=== PATIENT | female | born 1955 | race African-American/Black ===

== ENCOUNTER 2018-01-31 02:12 | Observation (INO) | payer MEDICARE ==
[2018-01-31 04:28] LABS: Troponin I 0.072 ng/mL (< 0.028)
[2018-01-31 04:31] VITALS: BMI 26.4
[2018-01-31 07:21] LABS: Troponin I 0.083 ng/mL (< 0.028)
[2018-01-31] MEDS ORDERED: Ondansetron PF 4 MG/2 ML Vial IVP PRN (07:40)
[2018-01-31] MEDS ORDERED: Acetaminophen 325 MG TAB PO PRN (07:41)
[2018-01-31] MEDS ORDERED: Ondansetron ODT 4 MG TAB PO PRN (07:41)
[2018-01-31 11:14] LABS: Troponin I 0.071 ng/mL (< 0.028)
[2018-01-31] MEDS ORDERED: busPIRone HCl 10 MG TAB PO PRN (11:28)
--- NOTE | 2018-01-31 16:04 | CON ---
DATE OF CONSULTATION: 01/31/2018 REASON FOR CONSULTATION: Chest pain. HISTORY OF PRESENT ILLNESS: Mrs. Mathis is a pleasant 60-year-old -Romanian female who comes to the hospital for chest pain. She sees Dr. Chin Bautista at [facility] and has seen Dr. Alexandre her e in past and did a heart catheterization in 2016. It was found that she had 20%-30% left main steno sis. No flow limiting disease in the LAD or the left circumflex. Right coronary had posterolateral branch about 50-75, but not flow limiting. Previously placed in the right coronary artery was widely patent with just mild plaque formation. She had a readmission in September of last year for similar comp laints of chest pain. She was ruled out with negative enzymes and discharged home. She comes in as she was at home trying to take her medications. She served herself a glass of water. She swallowed some saliva right before she would take a drink and she felt like she had a hard time swallowing and pressure started to develop on her chest. She took a sublingual nitro, which made the tightness in h er chest go away and took all her medicines, decided to come in for evaluation. She has not had this for at least the last year. PAST MEDICAL HISTORY: 1. Hypertrophic cardiomyopathy, status post myomectomy 2003. 2. Several atrial flutter ablations and atrial fibrillation ablations. 3. AICD placed in the past. 4. Coronary artery disease, status post stent to the right coronary artery as above. 5. Left heart catheterization back in 2016 as above. 6. Type 2 diabetes. 7. Hyperlipidemia. 8. . OUTPATIENT MEDICATIONS: Include: 1. Xarelto mg a day. 2. Ativan 0.5 mg p.o. b.i.d. p.r.n. 3. Amitriptyline. 4. Metoprolol succinate 25 mg daily. 5. BuSpar. 6. Imdur 60 mg p.o. b.i.d. 7. Gabapentin 200 mg p.o. t.i.d. 8. Aspirin 81 daily. 9. Albuterol. 10. Aldactone 50 mg a day. 11. Potassium chloride 20 mEq b.i.d. 12. Lasix 120 mg p.o. b.i.d. 13. Metformin 500 mg p.o. b.i.d. 14. Rosuvastatin 20 mg at bedtime. 15. Sublingual nitro. 16. Lisinopril 2.5 mg a day. ALLERGIES: PENICILLIN and SULFA DRUGS. SOCIAL HISTORY: Smokes a pack a day. No alcohol or drug use. FAMILY HISTORY: Bypass at early age in father. Mother is healthy otherwise. REVIEW OF SYSTEMS: Twelve-point review of system was done and is all negative unless stated in histo ry of present illness. PHYSICAL EXAMINATION: VITAL SIGNS: Temperature 98.0, pulse 59, respiration rate 16, sat 98% on room air, blood pressure 11 1/58. GENERAL: Awake, alert, oriented x3, in no distress. HEENT: Normocephalic. NECK: Supple. LUNGS: Clear. CARDIOVASCULAR: S1, S2, no S3, S4, no murmur. ABDOMEN: Soft, positive bowel sounds. EXTREMITIES: No edema. SKIN: Warm and dry. LABORATORY WORK: Reviewed. Troponin is undetermined range x3. CBC with a white count of 13, hemogl obin of 13, hematocrit 40, platelet count 196. Chemistry: BNP was 424. CMP was unremarkable. Crea tinine 1.2, glucose of 155. UA was unremarkable. EKG was reviewed. ASSESSMENT AND PLAN: 1. Chest pain: Atypical. Her troponins are indeterminate, which is similar to what they were in th e past. We will plan on doing a nuclear stress test to evaluate for ischemia. 2. We will repeat an echocardiogram to evaluate LV function and valvular structures. 3. Currently chest pain free. No recurrence. 4. Further recommendations per results of stress and echo.
[2018-01-31] MEDS: Rivaroxaban 10 MG TAB PO SCH (16:47)
[2018-01-31] MEDS: metFORMIN 500 MG TAB PO SCH (16:47)
--- NOTE | 2018-01-31 17:08 | PDOC.PN ---
- Subjective Encounter Start Date: 01/31/18 Encounter Start Time: 09:00 Subjective: f/u on new admission for chest pain -: Significant cardiac hx, last Echo 3-4 months ago, -: Patient reports chest pain has resolved - Objective Resuscitation Status: FULL Vital Signs & Weight: Vital Signs (12 hours) Temp Pulse Resp BP BP Pulse Ox 01/31/18 15:00 98.2 F 60 16 130/68 99 01/31/18 11:36 98 F 59 L 16 111/58 L 98 01/31/18 08:00 98.2 F 60 18 108/56 L 97 01/31/18 07:36 98.2 F 60 16 108/56 L 97 Weight Weight 76.657 kg I&O: 01/30/18 01/31/18 02/01/18 06:59 06:59 06:59 Intake Total 10 10 Output Total 700 Balance -690 10 Additional Labs: Accuchecks 01/31/18 01/31/18 01/31/18 16:36 11:15 05:54 POC Glucose 88 85 106 Phys Exam - Physical Examination HEENT: PERRLA, moist MMs Neck: no nodes, no JVD Respiratory: no wheezing, no rales, no rhonchi Cardiovascular: RRR, no rub Murmur grade 4/6 Gastrointestinal: soft, non-tender Musculoskeletal: no edema, pulses present Neurological: non-focal, normal sensation Lymphatic: no nodes Psychiatric: normal affect, A&O x 3 Skin: no rash, normal turgor, cap refill <2 seconds Dx/Plan (1) Demand ischemia of myocardium Code(s): I24.8 - OTHER FORMS OF ACUTE ISCHEMIC HEART DISEASE Status: Acute (2) Obesity (BMI 30.0-34.9) Code(s): E66.9 - OBESITY, UNSPECIFIED Status: Acute (3) CAD (coronary artery disease) Code(s): I25.10 - ATHSCL HEART DISEASE OF [place] CORONARY ARTERY W/O ANG PCTRS Status: Chronic Qualifiers: Coronary Disease-Associated Artery/Lesion type: [place] artery [place] vs. transplanted heart: [place] heart Associated angina: without angina Qualified Code(s): I25.10 - Atherosclerotic heart disease of [place] coronary artery without angina pectoris Comment: nearly 4 stents per patient (4) Diabetes type 2, controlled Code(s): E11.9 - TYPE 2 DIABETES MELLITUS WITHOUT COMPLICATIONS Status: Chronic Qualifiers: Diabetes mellitus usp insulin use: with usp use Diabetes mellitus complication status: with unspecified complications Qualified Code(s) : E11.8 - Type 2 diabetes mellitus with unspecified complications; Z79.4 - terminal operator (current) use of insulin (5) H/O hypertrophic cardiomyopathy Code(s): Z86.79 - PERSONAL HISTORY OF OTHER DISEASES OF THE CIRCULATORY SYSTEM Status: Chronic (6) HTN (hypertension) Code(s): I10 - ESSENTIAL (PRIMARY) HYPERTENSION Status: Chronic Qualifiers: Hypertension type: essential hypertension Qualified Code(s): I10 - Essential (primary) hypertension (7) Tobacco abuse Code(s): Z72.0 - TOBACCO USE Status: Chronic - Plan -: Cardiology consult, Echo and Stress test in AM -: Continue Home meds -: Labs in am, NPO after midnight -: Will continue to monitor * .
[2018-01-31] MEDS ORDERED: Rosuvastatin 20 MG TAB PO SCH (21:00)
[2018-01-31] MEDS: Potassium Chloride 20 MEQ TAB PO SCH (21:53)
[2018-01-31 22:26] LABS: Hemoglobin 13.4 g/dL (12.0-16.0); Platelet Count 195 thou/uL (130-400)
[2018-01-31] MEDS ORDERED: Acetaminophen 325 MG TAB PO SCH (22:45)
--- NOTE | 2018-02-01 01:42 | HP ---
PRIMARY CARE PHYSICIAN: Rosa Owusu M.D. Patient sees a industrial court magistrate at [facility]. CHIEF COMPLAINT: Chest pain. HISTORY OF PRESENT ILLNESS: Ms. Mathis is a pleasant 60-year-old -Citizen Of [place] female who comes to the hospital for chest pain. She reports that she sees a Dr. Chin Bautista at the [facility] and has seen Dr. Alexandre here in the past, who did a heart catheterization in 2016. She reports garrett t she was in her normal state of health. When last night, she went into the kitchen to get a glass o f water to take her evening meds. She swallowed some saliva before she took a drink and felt like sh e had a hard time swallowing and she reported some chest pressure in her chest. She reports feeling ill, diaphoretic. Reports that she had to wake up her who went and got her some sublingual n itroglycerin and then aspirin. She took some of those, which made her chest pain get better. She wa s worried because of her significant cardiac history and she presented to the ER for chest pain evalu ation. PAST MEDICAL HISTORY: 1. Hypertrophic cardiomyopathy. 2. Several atrial flutter ablations and atrial fibrillation ablations. 3. AICD placed in the chest. 4. Coronary artery disease, status post stent in the right coronary artery. 5. Left heart catheterization in 2016. 6. Type 2 diabetes. 7. Hyperlipidemia. CURRENT MEDICATIONS: Patient takes albuterol inhaler 1 puff q.4 hours as needed, amitriptyline 10 mg p.o. at bedtime, aspirin 81 mg p.o. daily, BuSpar 10 mg p.o. b.i.d., Prozac 20 mg p.o. at bedtime, f urosemide 120 mg p.o. b.i.d., gabapentin she takes 300 mg twice a day, isosorbide 60 mg p.o. b.i.d., lisinopril 2.5 mg p.o. daily, metformin 500 mg p.o. b.i.d., metoprolol 25 mg p.o. b.i.d. She has nit roglycerin 0.4 mg tablets as needed for chest pain, potassium chloride 20 mEq p.o. b.i.d., Xarelto 20 mg p.o. daily, pravastatin 20 mg p.o. at bedtime, and spironolactone 50 mg p.o. daily. ALLERGIES: PENICILLIN and SULFA DRUGS. SOCIAL HISTORY: Patient lives at home with her . Smokes a pack of cigarettes a day. Denies any alcohol or drug use. FAMILY HISTORY: Father had a bypass at an early age. Mother is healthy. REVIEW OF SYSTEMS: Twelve-point review of systems was done and are negative other than what is state d in the HPI. PHYSICAL EXAMINATION: VITAL SIGNS: Temperature 98.2, pulse is 60, respirations are 16, pulse ox 97 on room air, blood pres sure 108/56. GENERAL: Patient is alert, awake, and oriented x3, is in no distress. HEENT: Head is normocephalic. Mucous membranes are moist. NECK: Supple, no JVD. LUNGS: Clear to auscultation. No rhonchi, no rales. CARDIOVASCULAR: S1, S2. No murmur, no gallops. ABDOMEN: Soft, nontender, positive bowel sounds. EXTREMITIES: Equal strength pulses bilaterally. No edema is noted to lower extremities. SKIN: Warm, dry, and intact. PERTINENT LABORATORY DATA: White blood cell count is 13, red blood cells 4.9, hemoglobin 13.2, hemat ocrit 40.5, platelet count 196, bands 1. Sodium is 140, potassium 4.1, chloride 105, carbon dioxide 24, anion gap is 15, BUN is 16, creatinine is 1.23, estimated GFR is 54. Glucose is 155, CK-MB is 3. 6. Troponin first one 0.072, second one 0.083, third one 0.071. BNP is 424, albumin is 41. Chest x -ray was done in the ER, which showed cardiomegaly without any definite acute findings. EKG was done with a paced rhythm beats per minute are 60, prolonged AV conduction, incomplete left bundle branch block. ST segments were normal. T waves were normal. ASSESSMENT AND PLAN: 1. Chest pain. Serial troponins were indeterminate, which is similar to the way they were in the ms st. Cardiology will be consulted. Stress test and a repeat echocardiogram if agreeable with Cardiol mariah. 2. Type 2 diabetes. We will continue patient's home medication, which includes metformin, hypertens ion. Home medications will be continued. 3. Tobacco abuse. Patient will be counseled on smoking cessation. LENGTH OF HOSPITAL STAY: Will be determined by hospital clinical course.
[2018-02-01 05:35] LABS: #Basophils 0.1 thou/uL (0.0-0.2); #Eosinphils 0.1 thou/uL (0.0-0.7); #Lymphocytes 3.5 thou/uL (1.20-3.40); #Monocytes 0.6 thou/uL (0.11-0.59); #Neutrophils 4.2 thou/uL (1.40-6.50); %Basophils 1.1 % (0.0-1.0); %Eosinophils 1.3 % (0.0-10.0); %Lymphocytes 41.6 % (21.0-51.0); %Monocytes 6.9 % (0.0-10.0); %Neutrophils 49.1 % (42.0-75.0); Mean Corpuscular HGB CONC 31.1 g/dL (32.0-36.0); Mean Corpuscular Hemoglobin 26.8 pg (27.0-31.0); Mean Corpuscular Volume 86.1 fL (78.0-98.0); Mean Platelet Volume 7.2 fL (7.4-10.4); Platelet Count 189 thou/uL (130-400); RBC Distribution Width 13.1 % (11.5-14.5); Red Blood Cell (RBC) Count 4.84 mill/uL (4.20-5.40); White Blood Cell (WBC) Count 8.5 thou/uL (4.8-10.8)
[2018-02-01 06:00] LABS: ALT (SGPT) 13 U/L (8-55); AST (SGOT) 19 U/L (5-34); Albumin 3.8 g/dL (3.5-5.0); Alkaline Phosphatase 68 U/L (40-150); Anion Gap 10 mmol/L (10-20); BUN (Urea Nitrogen) 22 mg/dL (9.8-20.1); Bilirubin, Total 0.3 mg/dL (0.2-1.2); Calc. Creatinine Clearance 70 mL/min (70-130); Carbon Dioxide 24 mmol/L (22-29); Chloride 107 mmol/L (98-107); Estimated GFR-MDRD 65; Globulin 2.9 g/dL (2.4-3.5); Glucose 105 mg/dL (70-105); Potassium 4.3 mmol/L (3.5-5.1); Protein, Total 6.7 g/dL (6.0-8.3); Sodium 137 mmol/L (136-145)
[2018-02-01] MEDS ORDERED: Aspirin 81 mg Enteric Coated Tablet PO SCH (09:00)
[2018-02-01] MEDS ORDERED: Lisinopril 2.5 MG TAB PO SCH ×2 (09:00→21:00)
[2018-02-01] MEDS: Potassium Chloride 20 MEQ TAB PO SCH (11:38)
--- NOTE | 2018-02-01 12:35 | PDOC.CTH ---
<Serena Guerra - Last Filed: 02/01/18 12:30> Cardiology Progress Note - Subjective The pt seen and examined. No overnight events. No cardiac complaints. - Objective Vital Signs Temp Pulse Resp BP BP Pulse Ox 02/01/18 11:35 98.1 F 69 18 121/66 98 02/01/18 07:50 98.1 F 65 18 118/58 L 98 02/01/18 07:35 98 F 65 18 118/58 L 98 02/01/18 04:00 98.4 F 55 L 15 109/53 L 98 Weight 171 lb 4.8 oz 01/31/18 02/01/18 02/02/18 06:59 06:59 06:59 Intake Total 10 1030 Output Total 700 1700 Balance -690 -670 - Physical Examination General/Neuro: alert & oriented x3 Neck: no JVD present Lungs: CTA Heart: RRR Abdomen: soft Extremities: other: - Telemetry Telemetry Rhythm: SR - Labs Result Diagrams: 02/01/18 05:22 02/01/18 05:22 Troponin/CKMB Troponin I 0.071 ng/mL (< 0.028) H 01/31/18 10:07 - Assessment/Plan 1. CAD with hx of stent placement in RCA - Stress test and Echo were done today and the results are pending at this moment. The pt denied any cardiac complaints at this time. Cont. to monitor on tele. 2. CMY with hx of AICD - stable; on Lisinopril 2.5mg qd, Metoprolol 25mg BID. Will resume Aldactone from today and will start Lasix later. 3. Hx Afib/Aflutter Ablation - remains in SR; On Xarelto 20mg qd and 4. DM type 2 - managed by PCP; diet education given to the pt 5. Hyperlipidemia - on Statin 6. Current smoker - Smoking cessation education given to the pt. MAR reviewed Review of Systems - Review of Systems Constitutional: reports: no symptoms reported EENTM: reports: no symptoms reported Respiratory: reports: no symptoms reported Cardiac (ROS): reports: no symptoms reported ABD/GI: reports: no symptoms reported : reports: no symptoms reported Musculoskeletal: reports: no symptoms reported <Dennise Alexandre - Last Filed: 02/01/18 15:11> Cardiology Progress Note - Objective Vital Signs Temp Pulse Resp BP BP Pulse Ox 02/01/18 12:40 69 02/01/18 11:35 98.1 F 69 18 121/66 98 02/01/18 07:50 98.1 F 65 18 118/58 L 98 02/01/18 07:35 98 F 65 18 118/58 L 98 02/01/18 04:00 98.4 F 55 L 15 109/53 L 98 Weight 171 lb 4.8 oz 01/31/18 02/01/18 02/02/18 06:59 06:59 06:59 Intake Total 10 1030 Output Total 700 1700 Balance -690 -670 - Labs Result Diagrams: 02/01/18 05:22 02/01/18 05:22 Troponin/CKMB Troponin I 0.071 ng/mL (< 0.028) H 01/31/18 10:07 - Assessment/Plan Pt. seen and eval. by me. No further CP. Stress test results pending but by my eval., there is a scar but no reversible ischemia. Chest clear. RRR. If the stress test is negative then she can be d/c'd home. she should f/u with me in 2-4 weeks in the office.
[2018-02-01] MEDS: metFORMIN 500 MG TAB PO SCH ×2 (12:40→17:25)
--- NOTE | 2018-02-01 13:10 | STRESS ---
Acquisition Time: 2018-02-01 09:53:17 Total Exercise Time: 00:01:00 Test Indications: CHEST PAIN Medications: Protocol: LEXISCAN Max HR: 067 BPM 41% of Pred: 160 BPM Max BP: 148/062 mmHG Max Work Load: 1.0 METS RESTING ECG: NORMAL SINUS RHYTHM AT 60 BPM WITH COMPLETE LEFT BUNDLE BRANCH BLOCK SYMPTOMS: NAUSEA NORMAL BP RESPONSE ECTOPY: NONE ECG STRESS: NO SIGNIFICANT CHANGES INTERPRETATION: AWAIT NUCLEAR IMAGES FOR DEFINITIVE DIAGNOSIS Confirmed by LETY FLOWERS ([id number]), video editor JOSE ROBERTO ELDRIDGE ([id number]) on 02/01/2018 1:10:12 PM Referred By: MD Nuno MERIDA Confirmed By:LETY FLOWERS
[2018-02-01] MEDS ORDERED: Regadenoson 0.4 MG/5 ML SYRINGE ONE (16:04)
--- NOTE | 2018-02-01 16:51 | NM ---
NUCLEAR MEDICINE CARDIAC SPACE WITH EF AND WALL MOTION: 02/01/18 HISTORY: 62-year-old female with chest pain. History of coronary artery disease, CO, coronary artery bypass gr aft, congestive heart failure, dyslipidemia and smoking history. Lexiscan Sestamibi study. The patient was injected with 27 millicuries technetium 99m Sestamibi intravenously for stress images and patient was injected with 9.9 millicuries technetium 99m Sestamibi intravenously for resting trae ges. Multiple SPECT images in short axis, vertical long axis, and horizontal long axis demonstrates some d ecreased activity in the basilar portion of the inferior posterior wall without significant reversibi lity, evidence for some infarct/scar change. TID 1.0 LHR 0.36 EDV elevated at 152 mL. Ejection fraction 57%. Myocardial perfusion wall motion: There was some mild inferior and septal hypokinesis. IMPRESSION: No evidence for ischemia. Probable scar or infarct in the basilar portion of the posterior and inferi or saucedo. No evidence for ischemia. EDV 152 mL. EF 57%. Mild septal and inferior hypokinesis. POS: [facility]
[2018-02-01] MEDS: Rivaroxaban 10 MG TAB PO SCH (17:25)
[2018-02-01 17:55] VITALS: BP 141/63
[2018-02-01 17:59] VITALS: TEMP 98.4
--- NOTE | 2018-02-02 11:36 | EKG ---
Test Reason : CHEST PAIN Blood Pressure : / mmHG Vent. Rate : 060 BPM Atrial Rate : 060 BPM P-R Int : 224 ms QRS Dur : 174 ms QT Int : 514 ms P-R-T Axes : 098 -03 162 degrees QTc Int : 514 ms Atrial-paced rhythm with prolonged AV conduction Left bundle branch block Abnormal ECG Confirmed by KIMANI VYAS DO ([id number]), editorial specialist KAREN DEWEY ([id number]) on 02/02/2018 11:35:47 AM Referred By: Confirmed By:KIMANI VYAS DO
--- NOTE | 2018-02-02 12:50 | DIS ---
DATE OF ADMISSION: 01/31/2018 DATE OF DISCHARGE: 02/01/2018 PRIMARY CARE PHYSICIAN: Dr. Owusu. CONSULTANTS: Dr. Bonilla and Dr. Alexandre. CODE STATUS: FULL. PROCEDURES: Patient had a Cardiolite stress test with Lexiscan with nuclear medicine, cardiac space with EF and wall motion. Impression was no evidence for ischemia, probable scar, or infarct in the b asilar portion of the posterior and inferior saucedo. No evidence of ischemia. EF is 57%, mild septal and inferior hypokinesis. The patient was initially seen by Dr. Bonilla, who ordered the stress test and the echo. She was foll owed up with Dr. Alexandre, who stated that she could be discharged home if the stress test was negative a nd she wanted to follow up with Dr. Alexandre in 2-4 weeks. DISCHARGE DIAGNOSES: 1. Coronary artery disease with a history of stent placement in the right coronary artery with a his tory of an automatic implantable cardioverter-defibrillator. 3. Diabetes, type 2. 4. Hyperlipidemia. REVIEW OF SYSTEMS: A 12-point review of system was conducted. Patient denies any complaints today. PHYSICAL EXAMINATION: VITAL SIGNS: Temperature 98.4, pulse 61, respirations 18, p.o. sats are 99 on room air, blood pressu re 141/63. GENERAL: The patient is alert, awake, oriented x3, is in no distress. HEENT: Head is normocephalic. Mucous membranes are moist. NECK: Supple, no JVD. LUNGS: Clear to auscultation. No rhonchi or rales. CARDIOVASCULAR: S1 and S2. ABDOMEN: Soft, nontender, positive bowel sounds. EXTREMITIES: Equal strength bilaterally. No edema noted to lower extremities. SKIN: Warm and dry, and intact. HISTORY OF PRESENT ILLNESS AND HOSPITAL COURSE: Ms. Mathis is a pleasant 62-year-old -[place] female, who came to the hospital for chest pain. She reports that she sees Dr. Chin Bautista at [facility] and sees Dr. Alexandre here. Dr. Alexandre did a heart catheterization in [address] placement. She reports, on the night she went to the emergency room, she had gone into the kitch en to get a glass of water. Before she started drinking the water, she noted trouble swallowing with chest pressure in her chest. She reports feeling ill, diaphoretic. She was able to wake her husban d, who was able to retrieve her sublingual nitro and aspirin, which she reports some relief. Here, s he was seen by Dr. Bonilla and Dr. Alexandre. A stress test was performed with an echocardiogram. Echo st ates 55%-60% EF, mild diastolic dysfunction. Left atrium is moderately dilated. The pacemaker or AI CD leads visualized in RA cavity, mild mitral regurg is present. Mitral annular calcification is pre sent. [id number] aortic regurgitation is noted. Trace tricuspid regurgitation. Mild pulmonic regurgitation is present. Stress test with nuclear medicine was negative. The patient denies any c hest pain while she has been hospitalized. Patient will be discharged to follow up with her primary care doctor within a week and Dr. Alexandre within the next 2-4 weeks. ALLERGIES: PENICILLINS and SULFA MEDICATION. HOME MEDICATIONS: She will be continued on her home medications, which include albuterol 1 puff q.4 hours as needed, Elavil 10 mg p.o. at bedtime, aspirin 81 mg p.o. daily, BuSpar 10 mg p.o. b.i.d., Pr ozac 20 mg p.o. at bedtime, Lasix 120 mg p.o. b.i.d., gabapentin 300 mg p.o. t.i.d., Imdur 60 mg p.o. b.i.d., lisinopril 2.5 mg daily, Ativan 0.5 mg p.o. b.i.d., Glucophage 500 mg b.i.d., metoprolol 25 mg p.o. b.i.d., nitro paste 0.4 mg sublingual every 5 minutes as needed for chest pain, potassium chl oride 20 mEq p.o. b.i.d., Xarelto 20 mg p.o. daily, rosuvastatin 20 mg p.o. at bedtime, and spironola ctone 50 mg p.o. daily. The patient was in stable condition on discharged and discharged to home. She will need to follow up with Dr. Owusu within [address] Alexandre within 2-4 weeks.
== END 2018-02-01 18:00 | disposition home or self-care (01) ==
LOC: ERS 02:12 → 2NO 02:57
PROVIDERS: ADMIT Internal Medicine; ATTEND Internal Medicine
DX: R07.89 Other chest pain (principal); I25.10 Atherosclerotic heart disease of native coronary artery without angina pectoris; E11.9 Type 2 diabetes mellitus without complications; E78.5 Hyperlipidemia, unspecified; F17.200 Nicotine dependence, unspecified, uncomplicated; I42.9 Cardiomyopathy, unspecified; E66.9 Obesity, unspecified; I24.8 Other forms of acute ischemic heart disease; I10 Essential (primary) hypertension; Z88.0 Allergy status to penicillin; Z88.2 Allergy status to sulfonamides; Z95.5 Presence of coronary angioplasty implant and graft; Z79.899 Other long term (current) drug therapy; Z86.79 Personal history of other diseases of the circulatory system; Z68.26 Body mass index [BMI] 26.0-26.9, adult
CPT/HCPCS: 78452; 80053; 82565; 82962 ×2; 84484; 85014; 85018; 85025; 85049; 93005; 93017; 93306; 99285; A9500; G0378 ×2; 36415; 36416; J2785

== ENCOUNTER 2018-03-06 14:16 | Observation (INO) | payer MEDICARE ==
--- NOTE | 2018-03-06 15:14 | RAD ---
PORTABLE CHEST 1 VIEW: Date: 03/06/18 Time: 1501 hours HISTORY: Chest pain. FINDINGS: Comparison made with exam of 01/31/18. Changes of median sternotomy are again seen. There is borderline cardiomegaly. Left-sided pacemaker d evice remains in place. No focal areas of consolidation, pneumothorax, krista pulmonary edema, or pleu ral effusions are seen. IMPRESSION: No acute process. POS: [facility]
[2018-03-06 15:38] LABS: #Eosinphils 0.1 thou/uL (0.0-0.7); #Lymphocytes 3.4 thou/uL (1.20-3.40); #Monocytes 0.6 thou/uL (0.11-0.59); #Neutrophils 4.8 thou/uL (1.40-6.50); %Basophils 0.1 % (0.0-1.0); %Eosinophils 1.2 % (0.0-10.0); %Lymphocytes 37.9 % (21.0-51.0); %Monocytes 6.6 % (0.0-10.0); %Neutrophils 54.2 % (42.0-75.0); Hemoglobin 13.3 g/dL (12.0-16.0); Mean Corpuscular HGB CONC 32.1 g/dL (32.0-36.0); Mean Corpuscular Hemoglobin 27.5 pg (27.0-31.0); Mean Corpuscular Volume 85.6 fL (78.0-98.0); Mean Platelet Volume 7.6 fL (7.4-10.4); Platelet Count 180 thou/uL (130-400); RBC Distribution Width 12.9 % (11.5-14.5); Red Blood Cell (RBC) Count 4.82 mill/uL (4.20-5.40); White Blood Cell (WBC) Count 8.9 thou/uL (4.8-10.8)
[2018-03-06 16:03] LABS: ALT (SGPT) 10 U/L (8-55); AST (SGOT) 15 U/L (5-34); Albumin 3.7 g/dL (3.5-5.0); Alkaline Phosphatase 73 U/L (40-150); Anion Gap 13 mmol/L (10-20); BUN (Urea Nitrogen) 20 mg/dL (9.8-20.1); Bilirubin, Total 0.3 mg/dL (0.2-1.2); CK (CPK) 111 U/L (29-168); Calc. Creatinine Clearance 0 mL/min (70-130); Calcium 9.7 mg/dL (7.8-10.44); Carbon Dioxide 26 mmol/L (22-29); Chloride 103 mmol/L (98-107); Estimated GFR-MDRD 42; Globulin 3.1 g/dL (2.4-3.5); Glucose 100 mg/dL (70-105); Lipase 46 U/L (8-78); Potassium 3.8 mmol/L (3.5-5.1); Protein, Total 6.8 g/dL (6.0-8.3); Sodium 138 mmol/L (136-145)
[2018-03-06 16:08] LABS: CKMB 3.7 ng/mL (0-6.6); Troponin I 0.055 ng/mL (< 0.028)
[2018-03-06 17:51] LABS: Troponin I 0.059 ng/mL (< 0.028)
[2018-03-06] MEDS ORDERED: Furosemide 40 MG/4 ML VIAL ONE (18:23)
[2018-03-06] MEDS ORDERED: Nitroglycerin 2% Ointment 1 INCH/1 GM Packet ONE (18:23)
[2018-03-06] MEDS ORDERED: Ondansetron PF 4 MG/2 ML Vial IVP PRN (22:20)
[2018-03-06] MEDS ORDERED: Ondansetron ODT 4 MG TAB SL PRN (22:20)
[2018-03-06 22:31] LABS: Troponin I 0.068 ng/mL (< 0.028)
[2018-03-06] MEDS ORDERED: Lorazepam 0.5 MG TAB PO PRN (23:00)
[2018-03-06] MEDS ORDERED: busPIRone HCl 10 MG TAB PO PRN (23:00)
[2018-03-06] MEDS ORDERED: Nitroglycerin 0.4 MG TAB (25 Tab Bottle) PO PRN (23:02)
[2018-03-06] MEDS ORDERED: Sodium Chloride 0.9% 1,000 ML IV SCH (23:15)
[2018-03-06] MEDS ORDERED: Enoxaparin Sodium 80 MG/0.8 ML SYRINGE SC SCH (23:45)
[2018-03-07] MEDS ORDERED: Bisacodyl 5 MG TAB PO PRN (04:33)
[2018-03-07] MEDS ORDERED: Acetaminophen 325 MG TAB PO PRN (04:33)
[2018-03-07] MEDS ORDERED: Senokot S 8.6-50 MG TAB PO PRN (04:33)
[2018-03-07] MEDS ORDERED: Nitroglycerin 2% Ointment 1 INCH/1 GM Packet TOP SCH (06:00)
[2018-03-07] MEDS ORDERED: Aspirin 325 MG TAB PO SCH (06:00)
[2018-03-07] MEDS ORDERED: Furosemide 40 MG/4 ML VIAL SLOW IVP SCH (06:00)
[2018-03-07 06:54] LABS: Albumin 3.4 g/dL (3.5-5.0); Anion Gap 11 mmol/L (10-20); BUN (Urea Nitrogen) 20 mg/dL (9.8-20.1); BUN/Creatinine Ratio 18.52; Calc. Creatinine Clearance 67 mL/min (70-130); Calcium 9.6 mg/dL (7.8-10.44); Carbon Dioxide 25 mmol/L (22-29); Chloride 106 mmol/L (98-107); Estimated GFR-MDRD 63; Glucose 89 mg/dL (70-105); Phosphorus 3.5 mg/dL (2.3-4.7); Potassium 3.6 mmol/L (3.5-5.1); Sodium 138 mmol/L (136-145)
--- NOTE | 2018-03-07 06:54 | HP ---
CHIEF COMPLAINT: Chest pain. HISTORY OF PRESENT ILLNESS: This is a 62-year-old female with past medical history of coronary artery disease, status post stents, status post pacemaker and defibrillator; CHF; VA x2; hyperlipidemia; and hypertension, presenting with chest pain, which started early on the day of admission. Per the patient, chest pain was discomfort in nature and it was 6/10, dull, and it was sudden, and it became progressively worse, and that prompted the patient to come to the hospital to be evaluated. The patient states that nothing really relieved her pain and the pain was intermittent. The patient sees Dr. Alexandre for heart murmur monitoring. The patient was also recently seen in the hospital on 02/01/2018 for chest pain. During that time, the patient had a cardiac echo done. The patient's echo showed left ventricular ejection fraction of 50% to 60% during that time. The patient denies any fever, chills, generalized weakness, or night sweats. Denies any constipation, diarrhea, nausea, or vomiting, but admits to chest pain. REVIEW OF SYSTEMS: Positive for chest pain, otherwise as documented in the HPI. All other systems were reviewed and are negative. PAST MEDICAL HISTORY: Significant for VA x2; hyperlipidemia; hypertension; status post pacemaker and defibrillator; coronary artery disease, status post stents; and CHF. FAMILY HISTORY: Reviewed and noncontributory. PAST SURGICAL HISTORY: Coronary artery bypass and graft, , status post ablation and pacemaker. PSYCHIATRIC HISTORY: No previous psychiatric history. SOCIAL HISTORY: The patient uses tobacco, smokes 1 pack per day. The patient denies alcohol use. The patient denies illicit drug use. ALLERGIES: THE PATIENT IS ALLERGIC TO PENICILLINS AND SULFA DRUGS. CURRENT MEDICATIONS: The patient is on: 1. Amitriptyline 10 mg. 2. Furosemide 80 mg. 3. Gabapentin 300 mg. 4. Isosorbide dinitrate 60 mg. 5. Xarelto 20 mg. 6. Fluoxetine 20 mg. 7. Buspirone 10 mg. 8. Metoprolol 25 mg. 9. Crestor 20 mg. 10. Lisinopril 2.5 mg. 11. Spironolactone 50 mg. 12. Aspirin 81 mg. 13. Metformin 500 mg. 14. Lorazepam 0.5 mg as needed. 15. Nitroglycerin 0.4 mg sublingual as needed. 16. Klor-Con 20 mEq daily. PHYSICAL EXAMINATION: VITAL SIGNS: Blood pressure 130/74, pulse of 71, respiratory rate of 18, and O2 sat of 99. GENERAL: The patient is awake, alert, and oriented x3, lying in bed, speaking in full sentences, does not appear to be in any acute distress. HEENT: Normocephalic and atraumatic. Pupils are equal, round, and reactive to light. Extraocular movements are intact. No scleral icterus. No conjunctival pallor. Mucous membranes are moist. NECK: Trachea is midline. Full range of motion. Supple. No JVD. LUNGS: Clear to auscultation bilaterally. No wheezing, no rales, no rhonchi is appreciated. CARDIAC: Positive S1 and S2. Regular rate and rhythm. There is a systolic murmur appreciated, 3/6. ABDOMEN: Soft, nontender, and nondistended. Positive bowel sounds in all quadrants. No peritoneal signs. No palpable masses. EXTREMITIES: The patient has 5/5 upper extremity strength and 5/5 lower extremity strength with good pulses bilaterally in the upper and lower extremities. No edema noted. NEUROLOGIC: GCS score is 15. No focal neurologic deficits noted. SKIN: Warm, dry, and intact. PSYCH: The patient is alert and oriented x3. Normal affect. DIAGNOSTIC DATA: EKG shows normal sinus rhythm. Chest x-ray shows cardiomegaly. No acute disease noted. LABORATORY DATA: WBC is 8.9, hemoglobin 13.3, and platelets 180. Sodium is 138 , potassium is 3.8, chloride is 103, anion gap of 30, BUN is 20, and creatinine is 1.53. Troponin is 0.055, 0.059, and 0.068. BNP is 667.8. ASSESSMENT AND PLAN: This is a 62-year-old female being admitted for; 1. Chest pain. Rule out acute coronary syndrome. At this point, we will start the patient on aspirin, Lovenox therapeutic dose. We will continue the patient on these medications. We will consult Cardiology. We will monitor the patient closely. 2. Acute kidney injury, likely due to dehydration. We will start the patient on IV fluids. We will continue IV fluids. We will monitor the patient closely. We will get a renal panel. We will follow up on the results. 3. Hypertension. We will continue the patient on home medications. We will monitor the patient's blood pressure closely. 4. Hyperlipidemia. We will continue the patient on her home medications. 5. Congestive heart failure. At this point, the patient is not in any acute overt failure. We will continue to monitor the patient. We will continue the patient on her home medications. 6. Deep venous thrombosis and gastrointestinal prophylaxis. Job ID: [id number] MTDD
[2018-03-07] MEDS ORDERED: Enoxaparin Sodium 80 MG/0.8 ML SYRINGE SC SCH (09:00)
[2018-03-07] MEDS ORDERED: Rivaroxaban 10 MG TAB PO SCH (09:00)
[2018-03-07] MEDS ORDERED: Famotidine 20 MG TAB PO SCH (09:00)
[2018-03-07] MEDS ORDERED: Aspirin 81 mg Enteric Coated Tablet PO SCH (09:00)
[2018-03-07] MEDS ORDERED: Famotidine/PF 20 mg/2ml Vial SLOW IVP SCH (09:00)
[2018-03-07] MEDS ORDERED: Gabapentin 300 MG CAP PO SCH (09:00)
[2018-03-07] MEDS ORDERED: Potassium Chloride 20 MEQ TAB PO SCH (09:00)
--- NOTE | 2018-03-07 10:09 | ULT ---
RENAL ULTRASOUND: Comparison: None. History: Acute kidney injury. Technique: Multiplanar grayscale and color doppler images were obtained in a renal ultrasound. FINDINGS: The kidneys are normal in echogenicity without hydronephrosis or calculi and each measure 9.8 cm in l ength. Limited visualization of the urinary bladder is unremarkable. IMPRESSION: Unremarkable renal ultrasound. POS: CIERRA
[2018-03-07 11:50] VITALS: BP 145/69; TEMP 98
--- NOTE | 2018-03-07 12:22 | PDOC.PN ---
- Subjective Encounter Start Date: 03/07/18 Encounter Start Time: 10:30 Patient seen and examined for CP. Denies any CP at this time. Some gen IBANEZ without any photophobia/phonophobia or focal deficits. No other complaints. No overnight events - Objective Resuscitation Status - Order Detail: 03/07/18 04:33 Resuscitation Status Routine Resuscitation Status: FULL: Full Resuscitation MAR Reviewed: Yes Vital Signs & Weight: Vital Signs (12 hours) Temp Pulse Resp BP BP Pulse Ox 03/07/18 11:14 98.0 F 60 20 145/69 H 100 03/07/18 07:23 98.3 F 60 16 125/63 95 03/07/18 06:15 96 03/07/18 06:12 65 16 96 03/07/18 05:15 60 18 154/70 H 99 Weight Weight 167 lb 11.2 oz Result Diagrams: 03/06/18 15:26 03/07/18 06:10 EKG Reviewed by me: Yes (Tele SR) Phys Exam - Physical Examination Constitutional: NAD Respiratory: no wheezing, no rhonchi Cardiovascular: RRR, no rub Gastrointestinal: soft, non-tender, positive bowel sounds Musculoskeletal: no edema Neurological: moves all 4 limbs Dx/Plan - Plan DVT proph w/SCDs 1. CP 2. CAD - last cath 2015 with recent negative stress test 3. Chronically elevated troponins in indeterminate range 4. JAYLAN on CKD 2 - improving 5. DM2 6. h/o Atrial arrhythmia on Xarelto 7. HTN / Other issues per H&P PLAN: Lasix/Lisinopril/Aldactone on hold due to JAYLAN AM labs DC Lovenox Cardiology following Cont ASA Cont Metoprolol Cont other meds as below Review of Systems - Review of Systems Respiratory: negative: Cough, Dry, Shortness of Breath, Hemoptysis, SOB with Excertion, Pleuritic Pain, Sputum, Wheezing Cardiovascular: negative: chest pain, palpitations, orthopnea, paroxysmal nocturnal dyspnea, edema, light headedness, other - Medications/Allergies Allergies/Adverse Reactions: Allergies Allergy/AdvReac Type Severity Reaction Status Date / Time Penicillins Allergy Verified 03/07/18 02:34 Sulfa (Sulfonamide Allergy Verified 03/07/18 02:34 Antibiotics) Medications: Current Medications Acetaminophen (Tylenol) 650 mg PO Q4H PRN PRN Reason: Headache/Fever/Mild Pain (1-3) Albuterol/Ipratropium (Duoneb) 3 ml NEB [id number] [facility] Last Admin: 03/07/18 06:12 Dose: 3 ml Amitriptyline HCl (Elavil) 10 mg PO HS [facility] Aspirin (Ecotrin) 81 mg PO DAILY [facility] Last Admin: 03/07/18 10:16 Dose: 81 mg Bisacodyl (Dulcolax) 10 mg PO DAILYPRN PRN PRN Reason: Constipation Buspirone HCl (Buspar) 10 mg PO BIDPRN PRN PRN Reason: Anxiety Enoxaparin Sodium (Lovenox) 70 mg SC 0900,2100 [facility] Last Admin: 03/07/18 10:17 Dose: Not Given Famotidine (Pepcid) 20 mg SLOW IVP Q12HR [facility] Last Admin: 03/07/18 10:17 Dose: Not Given Famotidine (Pepcid) 20 mg PO BID [facility] Last Admin: 03/07/18 10:16 Dose: 20 mg Fluoxetine HCl (Prozac) 20 mg PO HS [facility] Gabapentin (Neurontin) 300 mg PO TID [facility] Last Admin: 03/07/18 10:16 Dose: 300 mg Sodium Chloride (Normal Saline 0.9%) 1,000 mls @ 80 mls/hr IV .[id number] [facility] Last Admin: 03/07/18 00:36 Dose: 1,000 mls Isosorbide Mononitrate (Imdur) 60 mg PO BID [facility] Last Admin: 03/07/18 10:16 Dose: 60 mg Lorazepam (Ativan) 0.5 mg PO BIDPRN PRN PRN Reason: Anxiety Metoprolol Succinate (Toprol Xl) 25 mg PO BID [facility] Last Admin: 03/07/18 10:16 Dose: 25 mg Miscellaneous Medication (Pharmacy To Dose) 1 each IVPB ONE PRN PRN Reason: LOVENOX Pharmacy to dose Stop: 03/07/18 23:07 Nitroglycerin (Nitro-Bid 2% Ointment) 0.5 inch TOP Q8HR [facility] Last Admin: 03/07/18 07:40 Dose: Not Given Nitroglycerin (Nitrostat) 0.4 mg PO Q5MIN PRN PRN Reason: Chest Pain Potassium Chloride (K-Dur) 20 meq PO BID [facility] Last Admin: 03/07/18 10:16 Dose: 20 meq Rosuvastatin Calcium (Crestor) 20 mg PO HS [facility] Senna/Docusate Sodium (Senokot S) 2 tab PO BIDPRN PRN PRN Reason: Constipation
[2018-03-07 13:36] LABS: Cardiac Risk 3.2 (Less than 4.5)
--- NOTE | 2018-03-07 13:57 | DIS ---
DATE OF ADMISSION: 03/06/2018 DATE OF DISCHARGE: 03/07/2018 DISCHARGE DISPOSITION: Home. FOLLOWUP: 1. Follow up with primary care physician, Dr. Owusu in one week. 2. Follow up with Dr. Alexandre after 1 week. 3. Basic metabolic profile after 1 week is recommended. Primary care physician advised to follow. BRIEF HOSPITAL COURSE: The patient is a 62-year-old female with coronary artery disease, presented to the emergency room last night with chest discomfort. Please refer to the history and physical for further details. The patient was admitted to the hospital with a diagnosis of chest discomfort, rule out acute coronary syndrome. Serial troponins were in the indeterminate range. Please note that the patient has chronically elevated troponins in the indeterminate range. She had elevated creatinine at 1.53 that improved to 1.08 after holding diuretics. The patient was evaluated by Cardiology Dr. Alexandre. Dr. Alexandre recommended addition of PPIs. Her renal function has significantly improved. She is chest pain free at this time. She has been cleared by Cardiology for discharge. No other medication changes were made. FINAL DIAGNOSES: 1. Chest discomfort, acute coronary syndrome ruled out. 2. Chronically elevated troponins in the indeterminate range. 3. Coronary artery disease with stent placement. 4. Acute kidney injury, on chronic kidney disease stage 2. 5. Diabetes mellitus type 2. 6. History of atrial arrhythmias, on Xarelto. 7. Hypertension. Plan of care was discussed with the patient in detail. She stated understanding. Job ID: [id number]
[2018-03-07] MEDS ORDERED: FLUoxetine HCl 20 MG CAP PO SCH (21:00)
[2018-03-07] MEDS ORDERED: Amitriptyline HCl 10 MG TAB PO SCH (21:00)
[2018-03-07] MEDS ORDERED: Rosuvastatin 20 MG TAB PO SCH (21:00)
--- NOTE | 2018-03-07 22:23 | CON ---
DATE OF CONSULTATION: 03/07/2018 Cardiology Consult Note INDICATION FOR CONSULTATION: A 62-year-old female with known coronary artery disease as well as hypertrophic cardiomyopathy and chest discomfort. HISTORY OF PRESENT ILLNESS: This is a very unfortunate 62-year-old female, who has been seen in the past by me. She has had a history of coronary artery disease. She has had angioplasty and stent placement to the right coronary artery. Her last coronary catheterization, that I recall was in 2015, at which time she had diseased with 20% to 30% left main stenosis. She also had a right posterolateral branch of 50% to 75% which had not appeared to be flow limiting. She has had stent placement in the right coronary artery just prior to the take off the posterior descending artery. She has done relatively well. She recently was in the hospital in January just a month ago, on January 31, 2018, where she underwent stress testing due to chest pain and had no evidence of ischemia. She did have an inferior scar which I suspect is due to the posterolateral branch. Otherwise, she had been relatively stable. She was then discharged from the hospital recently. She said she has been sleeping a lot. She has not been out of bed very much. Her states she is in the bed most of the time, but did not have any indication to this. She does not have any significant chest pain. She states occasionally she does get some discomfort, which she describes as being a squeezing-type sensation. She had it last yesterday sometime when she awoke from sleep. She said she jumped out of the bed. She did not take any medicine for it. It did improve, but she then called 911, and was brought to the emergency room, where EKG shows atrial pacing with ventricular sensing. She has had a history of pacemaker insertion in the past. She has history of cardiomyopathy and she actually had a myomectomy due to hypertrophic obstructive cardiomyopathy. She has actually atrial sensing and ventricular pacing and this is due to the hypertrophic cardiomyopathy program to help the function of the heart. She is doing quite well. Her cardiac enzymes are indeterminant. She does have a slight elevation of BNP most likely associated with diastolic dysfunction that she has. She does have an AICD in place. She also have flutter and atrial fibrillation ablations in the past also. At this time, I did not see any acute changes, but one cannot interpret with EKG, but with the negative stress test and somewhat atypical type chest discomfort symptoms it is on the right side, sometimes the left side, and yesterday what she said was in the middle of the chest. It only lasted about an hour and did resolve. She has not been taking any H2 blockers and she does may be something that we may need to consider. At this time, she is comfortable, I do not see any distress at all. Her blood pressure is 145/69 otherwise her vital signs remain stable. PAST MEDICAL HISTORY: Significant for the coronary artery disease, angioplasty and stent placement. She has also had the myomectomy due to the hypertrophic obstructive coronary myopathy. She has history of type 2 diabetes. She has hyperlipidemia. She has had a . She has an AICD placement. She has flutter ablations and atrial fibrillation ablations. MEDICATIONS: Prior to admission include; 1. Amitriptyline. 2. Furosemide. 3. Gabapentin. 4. Isosorbide dinitrate. 5. Xarelto. 6. Fluoxetine. 7. Lispro. 8. Metoprolol. 9. Crestor. 10. Spironolactone. 11. Aspirin. 12. Metformin. 13. Lorazepam. 14. Nitroglycerin. 15. Potassium. ALLERGIES: SHE SAYS SHE IS ALLERGIC TO PENICILLIN AND SULFA DRUGS. SOCIAL HISTORY: She smoked in the past about a pack a day. She has no significant alcohol use or drug use. FAMILY HISTORY: Positive for coronary artery disease in her father who has had bypass surgery in a relatively young age. REVIEW OF SYSTEMS: A 12-point system review of systems is unremarkable except what is noted in the history of present illness, but she does have increased fatigue. She sleeps a lot and she has occasional chest discomfort, which is somewhat atypical, and it is not always in the same place. PHYSICAL EXAMINATION: GENERAL: Reveals a well-developed, well-nourished female. She is in no acute distress. She is alert and oriented. VITAL SIGNS: Stable. She is afebrile. HEENT: Unremarkable. CHEST: Clear to auscultation without rales, rhonchi, or wheezing. CARDIOVASCULAR: Reveals a regular rate and rhythm. There is no S3 or S4. She does have a very soft diastolic murmur in the aortic area compatible with [id number] aortic valve regurgitation. ABDOMEN: Soft and nontender. She has positive bowel sounds. EXTREMITIES: She has no clubbing, cyanosis, or edema. LABORATORY DATA: Shows troponin I on admission was 0.055 increased up to 0.59 and then up to 0.68 and then is now 0.60 with a CK-MB of 3.7. Her BNP was slightly elevated at 667 and creatinine was 1.53 and it has now decreased down to 1.08. Her hemoglobin was 13.3 with hematocrit of 41.3. Chest x-ray is unremarkable. As noted, she did have a stress test on February 01 of this year, which did not show any evidence of reversible ischemia. She did appear to have a small scar in the basilar portion of the posterior inferior wall of the left ventricle. An EKG is noted above for atrial sensing and ventricular pacing. IMPRESSION: 1. Chest pain, which is somewhat atypical in a patient with known coronary artery disease. Recently, she had a negative stress test. She has evidence of inferior scar and she has had stent placement in the right coronary artery. At this time, we will continue to treat her medically. She can be seen in the office in the next couple of weeks. I did suggest that she start taking Protonix every day. If she continued to have pain, the only other option would be to do a cardiac catheterization. 2. History of diabetes. This will be dealt with by the primary care service, it appears to be under reasonable control. 3. History of some anxiety and depression. The patient has been sleeping an increased amount and her medications may need to be adjusted. She needs to at least get some type of physical activity if at all possible and to decrease her amount of sleeping. 4. History of hypertension, this is under good result at this time. 5. History of hypertrophic obstructive cardiomyopathy with no indication that this is a problem at this time. It is stable and she is pacing in the ventricle 100% of the time. She also has a history of chronic tobacco abuse and this is likely that she has not stopped smoking. At this time from my perspective, the patient appears to be comfortable. There are no other acute changes noted. The enzymes are still indeterminant. Based on this, I will start her on Protonix and see how she does and I can see her back in the office in the next 1 to 2 weeks and if she continues to have pain despite being on the Protonix or H2 blockers, then I will suggest a repeat cardiac catheterization. Otherwise, we can continue her medical management. Job ID: [id number]
[2018-03-08] MEDS ORDERED: Potassium Chloride 20 MEQ TAB PO SCH (08:00)
--- NOTE | 2018-03-09 20:20 | EKG ---
Test Reason : Blood Pressure : / mmHG Vent. Rate : 060 BPM Atrial Rate : 060 BPM P-R Int : 202 ms QRS Dur : 174 ms QT Int : 512 ms P-R-T Axes : 061 -10 165 degrees QTc Int : 512 ms Electronic atrial pacemaker Left bundle branch block Abnormal ECG Confirmed by CHALO GONZALEZ, ANNE ([id number]), editor newspaper PILI DELGADO ([id number]) on 03/09/2018 8:20:05 PM Referred By: Confirmed By:ANNE ISABEL MD
== END 2018-03-07 13:42 | disposition home or self-care (01) ==
LOC: ERS 14:16 → 2SW 21:00
PROVIDERS: ADMIT Family Medicine; ATTEND Family Medicine
DX: R07.89 Other chest pain (principal); R79.89 Other specified abnormal findings of blood chemistry; I25.10 Atherosclerotic heart disease of native coronary artery without angina pectoris; I13.0 Hypertensive heart and chronic kidney disease with heart failure and stage 1 through stage 4 chronic kidney disease, or unspecified chronic kidney disease; E11.22 Type 2 diabetes mellitus with diabetic chronic kidney disease; N18.2 Chronic kidney disease, stage 2 (mild); I50.9 Heart failure, unspecified; N17.9 Acute kidney failure, unspecified; I43 Cardiomyopathy in diseases classified elsewhere; I25.2 Old myocardial infarction; E78.5 Hyperlipidemia, unspecified; F17.210 Nicotine dependence, cigarettes, uncomplicated; Z79.82 Long term (current) use of aspirin; Z79.84 Long term (current) use of oral hypoglycemic drugs; Z79.899 Other long term (current) drug therapy; Z88.0 Allergy status to penicillin; Z88.2 Allergy status to sulfonamides; Z95.1 Presence of aortocoronary bypass graft; Z95.5 Presence of coronary angioplasty implant and graft; Z95.810 Presence of automatic (implantable) cardiac defibrillator
CPT/HCPCS: 71045; 76770; 80053; 80061; 80069; 82550; 82553; 83690; 83880; 84484 ×3; 85025; 93005; 93306; 94640 ×2; 94760; 96361; 96372; 96374; 99285; G0378 ×2; 36415; 90471; 90686; G0008; J1650; J1940; J7620

== ENCOUNTER 2018-11-05 01:08 | Observation (INO) | payer MEDICARE ==
[2018-11-05] MEDS ORDERED: Enoxaparin Sodium 80 MG/0.8 ML SYRINGE ONE (02:57)
[2018-11-05 03:19] LABS: CKMB 3.8 ng/mL (0-6.6)
[2018-11-05 06:10] LABS: Troponin I 0.049 ng/mL (< 0.028)
[2018-11-05 07:55] VITALS: BMI 29.2
[2018-11-05] MEDS ORDERED: Senokot S 8.6-50 MG TAB PO PRN (07:55)
[2018-11-05] MEDS ORDERED: Zolpidem Tartrate 5 MG TAB PO PRN (07:55)
[2018-11-05] MEDS ORDERED: Ondansetron PF 4 MG/2 ML Vial IVP PRN (07:55)
[2018-11-05] MEDS ORDERED: hydrALAZINE 20 MG/ML VIAL SLOW IVP PRN (07:55)
[2018-11-05] MEDS ORDERED: Nitroglycerin 0.4 MG TAB (25 Tab Bottle) SL PRN (07:55)
[2018-11-05] MEDS ORDERED: Nitroglycerin 0.4 MG TAB (25 Tab Bottle) PO PRN (07:55)
[2018-11-05] MEDS ORDERED: Calcium Carbonate 500 MG ChewTAB PO PRN (07:55)
[2018-11-05] MEDS ORDERED: Loratadine 10 MG TAB PO PRN (07:55)
[2018-11-05] MEDS ORDERED: Artificial Tears 18 DROP/0.9 ML EA EYE PRN (07:55)
[2018-11-05] MEDS ORDERED: Bisacodyl 10 MG SUPP PR PRN (07:55)
[2018-11-05] MEDS ORDERED: HYDROcodone/Acetaminophen 5/325 mg Tablet PO PRN (07:55)
[2018-11-05] MEDS ORDERED: Lorazepam 0.5 MG TAB PO PRN (07:55)
[2018-11-05] MEDS ORDERED: Ondansetron ODT 4 MG TAB PO PRN (07:55)
[2018-11-05] MEDS ORDERED: Loperamide HCl 2 MG CAP PO PRN (07:55)
[2018-11-05] MEDS ORDERED: Sodium Chloride 0.65% Nasal 44 ML BOT EA NARE PRN (07:55)
[2018-11-05] MEDS ORDERED: PROVENTIL INHALER 6.7 G (200 INHALATIONS) INH PRN (07:55)
[2018-11-05] MEDS ORDERED: busPIRone HCl 10 MG TAB PO PRN (07:55)
[2018-11-05] MEDS ORDERED: Acetaminophen 325 MG TAB PO PRN (07:55)
[2018-11-05] MEDS ORDERED: Diabetic Tussin 200 MG/10 ML UDCUP PO PRN (07:55)
[2018-11-05 07:56] VITALS: TEMP 98
[2018-11-05] MEDS ORDERED: Nitroglycerin 0.4 MG TAB (25 Tab Bottle) SL SCH (08:00)
[2018-11-05 08:42] LABS: Troponin I 0.039 ng/mL (< 0.028)
[2018-11-05] MEDS ORDERED: Gabapentin 100 MG CAP PO SCH (09:00)
[2018-11-05] MEDS ORDERED: Spironolactone 25 MG TAB PO SCH (09:00)
[2018-11-05] MEDS ORDERED: Potassium Chloride 20 MEQ TAB PO SCH (09:00)
[2018-11-05] MEDS ORDERED: Lisinopril 2.5 MG TAB PO SCH (09:00)
[2018-11-05] MEDS ORDERED: Famotidine 20 MG TAB PO SCH (09:00)
[2018-11-05] MEDS ORDERED: Aspirin 325 mg Enteric Coated Tablet PO SCH (09:00)
[2018-11-05] MEDS ORDERED: Furosemide 80 MG TAB PO SCH (09:00)
[2018-11-05] MEDS ORDERED: metFORMIN 500 MG TAB PO SCH ×2 (09:00→17:00)
[2018-11-05] MEDS ORDERED: Furosemide 40 MG TAB PO SCH ×2 (11:00→21:00)
--- NOTE | 2018-11-05 11:01 | DIS ---
DATE OF ADMISSION: 11/05/2018 DATE OF DISCHARGE: 11/05/2018 DISCHARGE DISPOSITION: Home. PRIMARY DISCHARGE DIAGNOSES: 1. Acute kidney injury due to over-diuresis. 2. Chest pain, atypical. 3. Chronically elevated troponin. SECONDARY DISCHARGE DIAGNOSES: 1. Coronary artery disease. 2. Hypertension. 3. Dyslipidemia. 4. Diabetes, type 2. 5. Anxiety and depression. 6. History of hypertrophic cardiomyopathy. 7. Ischemic cardiomyopathy. 8. Tobacco abuse disorder. PRIMARY PROCEDURE/OPERATION: None. RADIOLOGIST INVESTIGATION: Chest x-ray, significant labs. Please see my HPI for further details. DISCHARGE MEDICATIONS: Please see my HPI for her home medication. She will continue all her previous medication except we have reduced her Lasix to 40 mg b.i.d. and potassium chloride 20 mEq p.o. daily. CONTRAINDICATION: None. CODE STATUS: Full code. INPATIENT TOWBOAT PILOT: None. ALLERGY: Iodine, penicillin, and sulfa. DISCHARGE PLAN: Posthospital, the patient will follow up with primary care physician and primary ditch digger. HOSPITAL COURSE: The patient was brought to ER for chest pain and headache. Her chest pain description was atypical and nonanginal, which was resolved. Her troponin is chronically elevated. Her EKG is nondiagnostic. Her routine labs done at [place] showed acute kidney injury and that is why we repeated BMP before discharge. We reduced dose of Lasix. We also reduced dose of potassium supplement. She will continue all other medications. She ran out Xarelto, which was prescribed. The patient does not want to go for any further testing and not needed. She will follow up with primary care physician. Job ID: [id number]
[2018-11-05 11:42] LABS: Anion Gap 11 mmol/L (10-20); BUN (Urea Nitrogen) 20 mg/dL (9.8-20.1); Calc. Creatinine Clearance 59 mL/min (70-130); Calcium 10.2 mg/dL (7.8-10.44); Carbon Dioxide 28 mmol/L (23-31); Chloride 105 mmol/L (98-107); Estimated GFR-MDRD 48; Glucose 165 mg/dL (80-115); Potassium 4.2 mmol/L (3.5-5.1); Sodium 140 mmol/L (136-145)
--- NOTE | 2018-11-05 11:50 | HP ---
PRIMARY CARE PHYSICIAN: Dr. Rosa Owusu. REASON FOR ADMISSION: Chest pain and headache. HISTORY OF PRESENT ILLNESS: A 63-year-old female, who has underlying history of hypertrophic cardiomyopathy. She has chronically elevated troponin. She came to emergency room at this time with complaint of headache and chest discomfort. Her chest discomfort was atypical. She describes left-sided discomfort without any radiation and without any association of nausea or vomiting. The patient reports that chest pain lasted for only seconds and subsequently subsided and never came back. In the emergency room, she had EKG which showed pacemaker rhythm. Chest x-ray showed no acute cardiopulmonary process. She does have chronically elevated troponin. She had negative stress test done in January 2018. Currently, the patient is chest pain-free and she does not want to go for any more investigation. The patient also reported that when she arrived to emergency room, she had headache, but that is also improved. In the emergency room, she was given Lovenox 1 mg/kg. The patient reports that she ran out her Xarelto medication for last few days. Rest of medication she was taking as prescribed. She denies any weight gain. She denies any orthopnea, PND, or leg swelling. She denies any palpitation, dizziness, or syncope. REVIEW OF SYSTEMS: CONSTITUTIONAL: Negative for weight loss or gain, ability to conduct usual activities. SKIN: Negative for rash, itching. EYES: Negative for double vision, pain. ENT/MOUTH: Negative for nose bleeding, neck stiffness, pain, tenderness. CARDIOVASCULAR: Negative for palpitations, dyspnea on exertion, orthopnea. RESPIRATORY: Negative for shortness of breath, wheezing, cough, hemoptysis, fever or night sweats. GASTROINTESTINAL: Negative for poor appetite, abdominal pain, heartburn, nausea, vomiting, constipation, or diarrhea. GENITOURINARY: Negative for urgency, frequency, dysuria, nocturia. MUSCULOSKELETAL: Negative for pain, swelling. NEUROLOGIC/PSYCHIATRIC: Negative for anxiety, depression. ALLERGY/IMMUNOLOGIC: Negative for skin rash, bleeding tendency. Please see my HPI for pertinent positives and negatives. All other review of systems reviewed and negative except as mentioned in HPI. PAST MEDICAL HISTORY: Hypertension, dyslipidemia, coronary artery disease, chronic diastolic heart failure, and chronic anticoagulation. PAST PSYCHIATRIC HISTORY: Anxiety and depression. PAST SURGICAL HISTORY: , ablation procedure, pacemaker procedure, coronary artery bypass graft, and cardiac catheterization with stent placement. SOCIAL HISTORY: The patient is smoking about 1.5 pack per day. She denies any alcohol abuse. She denies any other illicit drug abuse. FAMILY HISTORY: No strong family history of premature coronary artery disease, stroke, or cancer. ALLERGIES: THE PATIENT IS ALLERGIC TO PENICILLIN AND SULFA DRUGS. CURRENT HOME MEDICATION: 1. ProAir HFA one puff q.4 hourly p.r.n. 2. Nitroglycerin 0.4 mg sublingual p.r.n. 3. Amitriptyline 10 mg p.o. nightly. 4. Aspirin 81 mg p.o. daily. 5. Buspirone 10 mg b.i.d. 6. Prozac 20 mg p.o. at bedtime. 7. Lasix 80 mg b.i.d. 8. Gabapentin 600 mg p.o. at bedtime and 300 mg in the morning. 9. Imdur 60 mg b.i.d. 10. Lisinopril 2.5 mg daily. 11. Lorazepam 0.5 mg b.i.d. p.r.n. 12. Metformin 500 mg b.i.d. 13. Toprol-XL 25 mg b.i.d. 14. Potassium chloride 20 mEq p.o. b.i.d. 15. Crestor 20 mg p.o. nightly. 16. Aldactone 50 mg p.o. daily. 17. Xarelto 20 mg p.o. nightly. EMERGENCY ROOM COURSE: The patient has received Lovenox 1 mg/kg. PHYSICAL EXAMINATION: VITAL SIGNS: Currently, blood pressure 122/68, pulse 60, respiratory rate 20, temperature 98.0, and saturation 99% on room air. Weight 83.4 kg. GENERAL: The patient is currently alert, awake, and in no obvious acute distress. HEENT: Head; normocephalic and atraumatic. Eyes; pupils are round and reactive to light. Extraocular muscle intact. ENT, oropharynx within normal limits. Moist mucous membranes. No oral lesion. No pharyngeal erythema. No exudate. NECK: Supple. No JVD. No thyromegaly. No carotid bruit. No jugular venous distention. LUNGS: Clear to auscultation without any rhonchi or rales. CARDIAC: S1, S2 appears regular. No murmur. No gallop. No rub. ABDOMEN: Soft. Bowel sounds present. Nontender. Nondistended. No organomegaly. No mass. No suprapubic tenderness. BACK: Examination unremarkable. No CVA tenderness. EXTREMITIES: Upper extremity, passive movement of all joints are normal. Lower extremity, no edema. No calf tenderness. Good distal pulsation. SKIN: No skin rash. HEMATOLOGIC: No lymphadenopathy. NEUROLOGIC: Nonfocal examination. SIGNIFICANT LABORATORY DATA: EKG showing pacemaker rhythm. Chest x-ray showing no acute cardiopulmonary process. CBC; WBC 9.9, hemoglobin 13.4, and platelet 196. BMP; sodium 143, potassium 4.0, chloride 104, carbon dioxide 27, anion gap 16, BUN 19, creatinine 1.73, glucose 148, and calcium 10.4. LFT; AST 19, ALT 18, alkaline phosphatase 77, albumin 4.1, CK-MB 3.8, troponin I 0.054, 0.049, and 0.039. ASSESSMENT AND PLAN: 1. Acute kidney injury. The patient is currently euvolemic. The patient is taking high dose of Lasix therapy. I have advised this patient to reduce Lasix to 40 mg p.o. b.i.d. Also, advised to hold Lasix therapy for 2 days. She is completely euvolemic. She has over diuresis therapy and that is why she is getting acute kidney injury. As we have reduced the Lasix dose, we also advised to reduce potassium chloride to once a day. 2. Elevated troponin. The patient has chronically elevated troponin. The patient had negative stress test last year in January. 3. Ischemic cardiomyopathy. The patient is currently euvolemic and optimally treated with medicine. Chest pain, the patient's chest pain description is atypical. Troponin is trending down. She does not have any ongoing chest pain. Her EKG is nondiagnostic. The patient had negative stress test in January 2018. No need of further testing. She will follow up with primary care physician. 4. Xarelto ran out. We will prescribe Xarelto, which she was taking from previous admission. 5. Hypertension. She will continue lisinopril and Toprol-XL, Lasix, Aldactone, and Imdur as prescribed. Anxiety and depression. The patient will continue amitriptyline, buspirone, Prozac, and lorazepam as prescribed. 6. Dyslipidemia. The patient will continue Crestor 20 mg p.o. nightly as prescribed. 7. Diabetes, type 2. The patient will continue metformin 500 mg p.o. b.i.d. 8. Tobacco abuse disorder. Smoking cessation counseling given. Healthy lifestyle measure discussed with the patient. 9. Deep venous thrombosis prophylaxis, not needed because the patient is on Xarelto therapy. GI prophylaxis, Pepcid 20 mg p.o. b.i.d. 10. Code status: The patient is full code. The patient does not have any surrogate decision maker. Disposition plan based on clinical course, likely today. Job ID: [id number]
[2018-11-05 12:05] VITALS: BP 145/66
[2018-11-05] MEDS ORDERED: Rivaroxaban 10 MG TAB PO SCH (17:00)
[2018-11-05] MEDS ORDERED: Amitriptyline HCl 10 MG TAB PO SCH (21:00)
[2018-11-05] MEDS ORDERED: FLUoxetine HCl 20 MG CAP PO SCH (21:00)
[2018-11-05] MEDS ORDERED: Non-Formulary Item 1 EACH (Gabapentin [Gabapentin] 600 MG) PO SCH (21:00)
[2018-11-05] MEDS ORDERED: Rosuvastatin 20 MG TAB PO SCH (21:00)
[2018-11-05] MEDS ORDERED: Gabapentin 300 MG CAP PO SCH (21:00)
[2018-11-06] MEDS ORDERED: Potassium Chloride 20 MEQ TAB PO SCH (08:00)
[2018-11-06] MEDS ORDERED: Spironolactone 25 MG TAB PO SCH (08:00)
--- NOTE | 2018-11-12 13:54 | EKG ---
Test Reason : Blood Pressure : / mmHG Vent. Rate : 060 BPM Atrial Rate : 060 BPM P-R Int : 216 ms QRS Dur : 176 ms QT Int : 518 ms P-R-T Axes : 042 -12 154 degrees QTc Int : 518 ms Electronic atrial pacemaker Left bundle branch block Abnormal ECG Confirmed by CHALO GONZALEZ, ANNE ([id number]), desk editor PILI DELGADO ([id number]) on 11/12/2018 1:53:25 PM Referred By: Confirmed By:ANNE ISABEL MD
== END 2018-11-05 13:43 | disposition home or self-care (01) ==
LOC: ERS 01:08 → ERHOLD 02:32 → 2SW 07:45
PROVIDERS: ADMIT Family Medicine; ATTEND Family Medicine
DX: N17.9 Acute kidney failure, unspecified (principal); I11.0 Hypertensive heart disease with heart failure; I50.32 Chronic diastolic (congestive) heart failure; I43 Cardiomyopathy in diseases classified elsewhere; E11.9 Type 2 diabetes mellitus without complications; E78.5 Hyperlipidemia, unspecified; F17.210 Nicotine dependence, cigarettes, uncomplicated; I25.10 Atherosclerotic heart disease of native coronary artery without angina pectoris; F41.8 Other specified anxiety disorders; F32.9 Major depressive disorder, single episode, unspecified; R51 Headache; R07.89 Other chest pain; Z88.0 Allergy status to penicillin; Z91.041 Radiographic dye allergy status; Z79.01 Long term (current) use of anticoagulants; Z79.84 Long term (current) use of oral hypoglycemic drugs; Z79.899 Other long term (current) drug therapy; Z88.2 Allergy status to sulfonamides; Z95.0 Presence of cardiac pacemaker; Z95.1 Presence of aortocoronary bypass graft; Z95.5 Presence of coronary angioplasty implant and graft
CPT/HCPCS: 80048; 82553; 84484 ×2; 93005; 96372; 99285; G0378 ×2; 36415; J1650

== ENCOUNTER 2023-05-03 17:52 | Inpatient (IN) | payer MEDICARE, OTHER ==
[2023-05-03 19:35] LABS: #Basophils 0.1 thou/uL (0.0-0.2); #Eosinphils 0.2 thou/uL (0.0-0.7); #Neutrophils 5.5 thou/uL (1.40-6.50); %Basophils 0.7 % (0.0-1.0); %Eosinophils 2.2 % (0.0-10.0); %Monocytes 9.3 % (0.0-10.0); %Neutrophils 53.5 % (42.0-75.0); Hematocrit 44.6 % (36.0-47.0); Hemoglobin 13.7 g/dL (12.0-16.0); Mean Corpuscular HGB CONC 30.7 g/dL (32.0-36.0); Mean Corpuscular Hemoglobin 26.7 pg (27.0-31.0); Mean Corpuscular Volume 86.8 fl (78.0-98.0); Mean Platelet Volume 10.3 fL (7.4-10.4); Platelet Count 176 10x3/uL (130-400); RBC Distribution Width 16.3 % (11.5-14.5); Red Blood Cell (RBC) Count 5.14 mill/uL (4.20-5.40); White Blood Cell (WBC) Count 10.2 10x3/uL (4.8-10.8)
[2023-05-03 20:07] LABS: ALT (SGPT) 21 U/L (8-55); AST (SGOT) 35 U/L (5-34); Albumin 3.9 g/dL (3.4-4.8); Alkaline Phosphatase 119 U/L (40-110); Anion Gap 18 mmol/L (10-20); BUN (Urea Nitrogen) 30 mg/dL (9.8-20.1); Bilirubin, Total 0.4 mg/dL (0.2-1.2); Calc. Creatinine Clearance 0 mL/min (70-130); Carbon Dioxide 32 mmol/L (23-31); Chloride 88 mmol/L (98-107); Estimated GFR 21; Glucose 199 mg/dL (80-115); Potassium 2.9 mmol/L (3.5-5.1); Protein, Total 8.9 g/dL (5.8-8.1); Sodium 135 mmol/L (136-145)
[2023-05-03 20:20] LABS: Phosphorus 2.8 mg/dL (2.3-4.7)
[2023-05-03 20:33] LABS: Troponin I 0.219 ng/mL (< 0.028)
[2023-05-03 20:39] LABS: Magnesium 2.5 mg/dL (1.6-2.6)
[2023-05-03] MEDS ORDERED: Potassium Chloride 20 MEQ TAB ONE (21:19)
[2023-05-03 21:27] LABS: SARS-CoV-2 NAA Rapid Test Not Detected (NotDetected)
[2023-05-03] MEDS ORDERED: Ondansetron PF 4 MG/2 ML Vial IVP PRN (23:04)
[2023-05-03 23:36] LABS: Anion Gap 15 mmol/L (10-20); BUN (Urea Nitrogen) 30 mg/dL (9.8-20.1); Calc. Creatinine Clearance 0 mL/min (70-130); Calcium 9.7 mg/dL (7.8-10.44); Carbon Dioxide 35 mmol/L (23-31); Chloride 89 mmol/L (98-107); Estimated GFR 22; Glucose 154 mg/dL (80-115); Potassium 2.7 mmol/L (3.5-5.1); Sodium 136 mmol/L (136-145)
[2023-05-03 23:43] LABS: Critical Call Chem Troponin I RESULT DECREASING; Troponin I 0.216 ng/mL (< 0.028)
[2023-05-04] MEDS ORDERED: Acetaminophen 325 MG TAB PO PRN (00:45)
[2023-05-04] MEDS ORDERED: Potassium Chloride 10 MEQ in Premix 1 BAG IVPB SCH ×2 (01:00→01:15)
[2023-05-04] MEDS ORDERED: Potassium Chloride 20 MEQ TAB PO SCH ×2 (02:30→08:30)
[2023-05-04 03:04] VITALS: BMI 27.6
[2023-05-04] MEDS ORDERED: Dextrose 50% Abboject 50 ML SYRINGE SLOW IVP PRN (03:37)
[2023-05-04] MEDS ORDERED: Glucagon 1 MG/ML KIT IM PRN (03:37)
[2023-05-04] MEDS ORDERED: Dextrose 5% in Water 1,000 ML IV PRN (03:37)
[2023-05-04 05:52] LABS: #Basophils 0.1 thou/uL (0.0-0.2); #Eosinphils 0.3 thou/uL (0.0-0.7); #Monocytes 0.9 thou/uL (0.11-0.59); %Basophils 0.6 % (0.0-1.0); %Eosinophils 3.1 % (0.0-10.0); %Lymphocytes 30.2 % (21.0-51.0); %Monocytes 10.4 % (0.0-10.0); %Neutrophils 55.5 % (42.0-75.0); Hematocrit 39.5 % (36.0-47.0); Mean Corpuscular HGB CONC 30.4 g/dL (32.0-36.0); Mean Corpuscular Hemoglobin 26.1 pg (27.0-31.0); Mean Corpuscular Volume 86.1 fl (78.0-98.0); Mean Platelet Volume 9.5 fL (7.4-10.4); Platelet Count 158 10x3/uL (130-400); RBC Distribution Width 16.2 % (11.5-14.5); Red Blood Cell (RBC) Count 4.59 mill/uL (4.20-5.40)
[2023-05-04 06:42] LABS: BUN (Urea Nitrogen) 28 mg/dL (9.8-20.1); Calc. Creatinine Clearance 33 mL/min (70-130); Calcium 9.9 mg/dL (7.8-10.44); Estimated GFR 25; Glucose 148 mg/dL (80-115)
[2023-05-04 06:52] LABS: Anion Gap 16 mmol/L (10-20); Carbon Dioxide 34 mmol/L (23-31); Chloride 93 mmol/L (98-107); Potassium 3.2 mmol/L (3.5-5.1); Sodium 140 mmol/L (136-145)
[2023-05-04] MEDS: Furosemide 20 MG (2 mL) VIAL SLOW IVP SCH ×2 (06:58→16:41)
[2023-05-04 07:03] LABS: Critical Call Chem Troponin I NUR.PN1@0702; Troponin I 0.203 ng/mL (< 0.028)
[2023-05-04] MEDS: Ipratropium/Albuterol 3 ML NEB NEB SCH ×3 (07:20→19:23)
[2023-05-04] MEDS: Metoprolol Tartrate 25 MG TAB PO SCH ×2 (08:57→23:11)
[2023-05-04] MEDS: Aspirin 81 mg Enteric Coated Tablet PO SCH (08:57)
[2023-05-04] MEDS ORDERED: Docusate 100 MG CAP PO PRN (16:41)
[2023-05-04 17:48] LABS: Potassium 3.6 mmol/L (3.5-5.1)
[2023-05-04] MEDS: Rivaroxaban 15 MG TAB PO SCH (22:42)
[2023-05-05 05:51] LABS: #Basophils 0.1 thou/uL (0.0-0.2); #Eosinphils 0.3 thou/uL (0.0-0.7); #Monocytes 0.7 thou/uL (0.11-0.59); #Neutrophils 4.4 thou/uL (1.40-6.50); %Basophils 0.6 % (0.0-1.0); %Monocytes 8.2 % (0.0-10.0); Hematocrit 39.4 % (36.0-47.0); Mean Corpuscular HGB CONC 30.5 g/dL (32.0-36.0); Mean Corpuscular Hemoglobin 26.1 pg (27.0-31.0); Mean Corpuscular Volume 85.8 fl (78.0-98.0); Platelet Count 159 10x3/uL (130-400); RBC Distribution Width 16.4 % (11.5-14.5); Red Blood Cell (RBC) Count 4.59 mill/uL (4.20-5.40); White Blood Cell (WBC) Count 8.1 10x3/uL (4.8-10.8)
[2023-05-05] MEDS: Furosemide 20 MG (2 mL) VIAL SLOW IVP SCH ×2 (06:17→13:17)
[2023-05-05 06:18] LABS: Anion Gap 13 mmol/L (10-20); BUN (Urea Nitrogen) 28 mg/dL (9.8-20.1); Calc. Creatinine Clearance 40 mL/min (70-130); Calcium 9.3 mg/dL (7.8-10.44); Carbon Dioxide 33 mmol/L (23-31); Chloride 96 mmol/L (98-107); Estimated GFR 29; Glucose 133 mg/dL (80-115); Magnesium 2.5 mg/dL (1.6-2.6); Potassium 3.3 mmol/L (3.5-5.1); Sodium 139 mmol/L (136-145)
[2023-05-05] MEDS: Ipratropium/Albuterol 3 ML NEB NEB SCH ×3 (07:28→19:09)
[2023-05-05] MEDS: Metoprolol Tartrate 25 MG TAB PO SCH ×2 (09:36→21:02)
[2023-05-05] MEDS: Aspirin 81 mg Enteric Coated Tablet PO SCH (09:36)
[2023-05-05] MEDS: Acetaminophen 325 MG TAB PO PRN (09:42)
[2023-05-05] MEDS ORDERED: busPIRone HCl 10 MG TAB PO PRN (19:56)
[2023-05-05] MEDS ORDERED: Albuterol 200 PUFF (6.7GM INHALER) INH PRN (19:56)
[2023-05-05] MEDS ORDERED: Amitriptyline HCl 25 MG TAB PO SCH (21:00)
[2023-05-05] MEDS: Pregabalin 50 MG CAP PO SCH (21:02)
[2023-05-05] MEDS: Rivaroxaban 15 MG TAB PO SCH (21:02)
[2023-05-05] MEDS: Potassium Chloride 20 MEQ TAB PO SCH (21:03)
[2023-05-06] MEDS: Acetaminophen 325 MG TAB PO PRN (05:03)
[2023-05-06] MEDS: Furosemide 20 MG (2 mL) VIAL SLOW IVP SCH (05:04)
[2023-05-06 05:44] LABS: #Basophils 0.1 thou/uL (0.0-0.2); #Eosinphils 0.3 thou/uL (0.0-0.7); #Monocytes 0.7 thou/uL (0.11-0.59); #Neutrophils 4.2 thou/uL (1.40-6.50); %Basophils 0.6 % (0.0-1.0); %Eosinophils 3.8 % (0.0-10.0); %Neutrophils 49.4 % (42.0-75.0); Hematocrit 38.8 % (36.0-47.0); Mean Corpuscular HGB CONC 30.9 g/dL (32.0-36.0); Mean Corpuscular Hemoglobin 26.4 pg (27.0-31.0); Mean Corpuscular Volume 85.3 fl (78.0-98.0); Mean Platelet Volume 11.5 fL (7.4-10.4); Platelet Count 166 10x3/uL (130-400); RBC Distribution Width 16.5 % (11.5-14.5); Red Blood Cell (RBC) Count 4.55 mill/uL (4.20-5.40); White Blood Cell (WBC) Count 8.4 10x3/uL (4.8-10.8)
[2023-05-06 06:07] LABS: Anion Gap 13 mmol/L (10-20); BUN (Urea Nitrogen) 23 mg/dL (9.8-20.1); Calc. Creatinine Clearance 44 mL/min (70-130); Calcium 9.8 mg/dL (7.8-10.44); Carbon Dioxide 32 mmol/L (23-31); Chloride 98 mmol/L (98-107); Estimated GFR 33; Glucose 120 mg/dL (80-115); Potassium 3.3 mmol/L (3.5-5.1); Sodium 140 mmol/L (136-145)
[2023-05-06] MEDS: Ipratropium/Albuterol 3 ML NEB NEB SCH ×2 (08:08→12:51)
[2023-05-06] MEDS ORDERED: Alogliptin 25 MG TAB PO SCH (09:00)
[2023-05-06] MEDS ORDERED: Amiodarone 200 MG TAB PO SCH (09:00)
[2023-05-06] MEDS: Potassium Chloride 20 MEQ TAB PO SCH (10:40)
[2023-05-06] MEDS: Metoprolol Tartrate 25 MG TAB PO SCH (10:41)
[2023-05-06] MEDS: Aspirin 81 mg Enteric Coated Tablet PO SCH (10:41)
[2023-05-06] MEDS: Pregabalin 50 MG CAP PO SCH (10:42)
[2023-05-06 12:03] VITALS: BP 99/52; TEMP 96.9
== END 2023-05-06 13:50 | disposition home or self-care (01) | DRG 682 ==
LOC: ERS 17:52 → 2NO 22:53 → ERS 23:35
PROVIDERS: ADMIT Internal Medicine; ATTEND Family Medicine
DX: N17.9 Acute kidney failure, unspecified (principal); I50.33 Acute on chronic diastolic (congestive) heart failure; I13.0 Hypertensive heart and chronic kidney disease with heart failure and stage 1 through stage 4 chronic kidney disease, or unspecified chronic kidney disease; J96.11 Chronic respiratory failure with hypoxia; I25.10 Atherosclerotic heart disease of native coronary artery without angina pectoris; I48.91 Unspecified atrial fibrillation; E78.5 Hyperlipidemia, unspecified; J44.9 Chronic obstructive pulmonary disease, unspecified; E11.22 Type 2 diabetes mellitus with diabetic chronic kidney disease; N20.0 Calculus of kidney; I44.0 Atrioventricular block, first degree; F17.210 Nicotine dependence, cigarettes, uncomplicated; E87.6 Hypokalemia; R79.89 Other specified abnormal findings of blood chemistry; N18.4 Chronic kidney disease, stage 4 (severe); D63.1 Anemia in chronic kidney disease; Z71.6 Tobacco abuse counseling; Z88.0 Allergy status to penicillin; Z88.2 Allergy status to sulfonamides; Z79.899 Other long term (current) drug therapy; Z86.73 Personal history of transient ischemic attack (TIA), and cerebral infarction without residual deficits; Z11.52 Encounter for screening for COVID-19
CPT/HCPCS: 36415; 36416; 71046; 80048; 80053; 83036; 83735; 83880; 84100; 84484; 85025; 93005; 93306; 94640; J1940; J3480; J7620

== ENCOUNTER 2024-01-01 08:20 | Outpatient (CLI) | payer MEDICARE | END 2024-01-01 08:21 | disposition home or self-care (01) | LOC: CT 08:20 | PROVIDERS: ATTEND Internal Medicine | DX: J44.9 Chronic obstructive pulmonary disease, unspecified (principal); I50.9 Heart failure, unspecified; R59.0 Localized enlarged lymph nodes; I27.20 Pulmonary hypertension, unspecified; S22.081A Stable burst fracture of T11-T12 vertebra, initial encounter for closed fracture; D50.8 Other iron deficiency anemias | CPT/HCPCS: 71250; 80053; 82728; 83540; 83550 ==